=== PATIENT | male | born 1945 | race Caucasian/White ===

== ENCOUNTER 2016-06-24 16:32 | Emergency (ER) | payer OTHER, MEDICARE ==
[2016-06-24 16:27] LABS: BASOPHILS 0.3 %; BASOPHILS ABSOLUTE 0.02 10/3/uL (0.0-0.16); EOSINOPHILS 0.8 %; EOSINOPHILS ABSOLUTE 0.06 10/3/uL (0.0-0.53); ER CBC TAT 0 Hrs 07 Mins; HEMATOCRIT 34.1 % (40.0-51.0); HEMOGLOBIN 11.3 g/dL (13.6-17.8); IMMATURE GRANULOCYTES 0.1 %; IMMATURE GRANULOCYTES ABSOLUTE 0.01 10/3/uL (0.0-0.11); LYMPHOCYTES 18.3 %; LYMPHOCYTES ABSOLUTE 1.42 10/3/uL (0.67-4.30); MANUAL DIFF NO %; MEAN CORPUS HGB CONC 33.1 g/dL (32.0-36.0); MEAN CORPUSCULAR HEMOGLOB 27.2 pg (26.0-34.0); MEAN PLATELET VOLUME 9.4 fL (9.2-13.0); MONOCYTES 5.8 %; MONOCYTES ABSOLUTE 0.45 10/3/uL (0.21-1.20); NEUTROPHILS 74.7 %; NEUTROPHILS ABSOLUTE 5.82 10/3/uL (2.02-8.40); PLATELET COUNT 225 10/3/uL (150-400); RBC DISTRIBUTION WIDTH 15.8 % (12.0-16.0); RED CELL COUNT 4.16 10/6/uL (4.7-6.1); WHITE BLOOD CELLS 7.8 10/3/uL (4.5-10.5)
[~2016-06-24 16:32] MED LIST: APRES10B PO; ASAB PO; BEN25 PO; CENTRUM PO; CENTRUM TAB1 TAB PO; COREG6 PO; CYANO1000T PO; DAYQUIL PO; DULERA 200 MCG/13 GM INH; HALF81 PO; HEMOCYTE324 MG PO; IRON325 MG PO; ISORDIL10 PO; KAOPECTAT2 PO; KAOPECTATE PO; LEVAQUIN750 MG PO; LIPITOR40 PO; LOP25 PO; METAMUCIL CAPSULE PO; MUCINEX600 MG PO; MULTIVIT/MIN PO; NICODERM C21 MG/241; NICODERM C21 MG/241 TOP; NICODERM C7 MG/24 HR TOP; NORV5 PO; NYQUIL PO; OMNICEF300 PO; P20 OR; PAX10 PO; PRED50B PO; PROTONIX PO; PROVHFA INH; SPIRIVA INH; SYMBICORT 160/41 INH INH; VANTIN200 MG PO; VENTOLIN HFA INH; VITAMIN B-121000 MC1 SL; ZITH250; ZITH250 PO
[2016-06-24 16:46] LABS: A/G RATIO 0.8 (0.7-1.9); ALBUMIN 3.2 G/DL (3.5-5.0); CALCIUM, SERUM 8.6 MG/DL (8.5-10.4); CHLORIDE, SERUM 110 MMOL/L (96-112); CO2 (CARBON DIOXIDE) 25 MMOL/L (24-34); CREATININE 1.77 MG/DL (0.70-1.30); GFR AFRICAN AMERICAN 44 ML/MIN (>=60); GFR NON AFRICAN AMERICAN 38 ML/MIN (>=60); GLOBULIN 4.2 G/DL (2.5-4.1); GLUCOSE, SERUM 97 MG/DL (60-99); POTASSIUM, SERUM 4.1 MMOL/L (3.5-5.3); SGOT(AST) 16 U/L (5-40); SGPT(ALT) 20 U/L (5-65); SODIUM, SERUM 142 MMOL/L (135-148); TOTAL PROTEIN 7.4 G/DL (6.0-8.5)
[2016-06-24 16:47] LABS: ALKALINE PHOSPHATASE 127 U/L (45-117); BUN (BLOOD UREA NITROGEN) 23 MG/DL (6-23)
[2016-06-24 17:18] LABS: ASCORBIC ACID (UR NOT ORDER) NEG (NEG); BILIRUBIN, URINE NEGATIVE (NEG); ER URINALYSIS TAT 0 Hrs 09 Mins; KETONE, URINE NEGATIVE (NEG); LEUKOCYTE ESTERASE(NOT OR NEG (NEG); NITRITE (URINE) NEG (NEG); WBC (NOT ORDERED) (RFLEX) < 1 (0-5)
[2016-11-10] MEDS ORDERED: B12100T PO (02:29)
[2016-11-10] MEDS ORDERED: SUCR PO (02:30)
[2016-11-10] MEDS ORDERED: LIPITOR80 MG PO (02:30)
[2016-11-11] MEDS ORDERED: NORV5 PO (14:07)
[2016-11-11] MEDS ORDERED: PROTONIX PO (14:07)
[2016-11-12] MEDS ORDERED: PLAVIX PO (16:56)
[2016-11-13] MEDS ORDERED: ASAB PO (12:35)
== END 2016-06-24 19:10 | disposition home or self-care (01) ==
LOC: ER 16:32
PROVIDERS: Emergency Medicine
DX: I10 Essential (primary) hypertension (principal); F17.200 Nicotine dependence, unspecified, uncomplicated; N18.9 Chronic kidney disease, unspecified; Z91.14 Patient's other noncompliance with medication regimen; I12.9 Hypertensive chronic kidney disease with stage 1 through stage 4 chronic kidney disease, or unspecified chronic kidney disease; J44.9 Chronic obstructive pulmonary disease, unspecified; I25.10 Atherosclerotic heart disease of native coronary artery without angina pectoris; D64.9 Anemia, unspecified; Z86.73 Personal history of transient ischemic attack (TIA), and cerebral infarction without residual deficits; Z95.5 Presence of coronary angioplasty implant and graft; Z79.82 Long term (current) use of aspirin; Z79.899 Other long term (current) drug therapy
CPT/HCPCS: 70450; 80053; 81001; 85025; 96374; 99284; A9270-GY; J1170; J2405

== ENCOUNTER 2016-06-25 19:55 | Emergency (ER) | payer OTHER, MEDICARE ==
[2016-06-25 16:34] LABS: BASOPHILS 0.3 %; BASOPHILS ABSOLUTE 0.02 10/3/uL (0.0-0.16); EOSINOPHILS 1.1 %; EOSINOPHILS ABSOLUTE 0.07 10/3/uL (0.0-0.53); ER CBC TAT 0 Hrs 07 Mins; HEMATOCRIT 32.7 % (40.0-51.0); HEMOGLOBIN 10.7 g/dL (13.6-17.8); LYMPHOCYTES 25.1 %; LYMPHOCYTES ABSOLUTE 1.56 10/3/uL (0.67-4.30); MEAN CORPUS HGB CONC 32.7 g/dL (32.0-36.0); MEAN CORPUSCULAR HEMOGLOB 27.4 pg (26.0-34.0); MEAN CORPUSCULAR VOLUME 83.6 fL (80-100); MEAN PLATELET VOLUME 9.2 fL (9.2-13.0); MONOCYTES 10.8 %; MONOCYTES ABSOLUTE 0.67 10/3/uL (0.21-1.20); NEUTROPHILS 62.7 %; PLATELET COUNT 220 10/3/uL (150-400); RED CELL COUNT 3.91 10/6/uL (4.7-6.1); WHITE BLOOD CELLS 6.2 10/3/uL (4.5-10.5)
[2016-06-25 16:36] LABS: MANUAL DIFF NO %
[2016-06-25 16:53] LABS: A/G RATIO 0.8 (0.7-1.9); ALKALINE PHOSPHATASE 122 U/L (45-117); BUN (BLOOD UREA NITROGEN) 25 MG/DL (6-23); CALCIUM, SERUM 8.5 MG/DL (8.5-10.4); CHLORIDE, SERUM 110 MMOL/L (96-112); CO2 (CARBON DIOXIDE) 23 MMOL/L (24-34); CREATININE 2.13 MG/DL (0.70-1.30); GFR AFRICAN AMERICAN 36 ML/MIN (>=60); GFR NON AFRICAN AMERICAN 31 ML/MIN (>=60); GLUCOSE, SERUM 94 MG/DL (60-99); POTASSIUM, SERUM 3.9 MMOL/L (3.5-5.3); SGOT(AST) 14 U/L (5-40); SGPT(ALT) 17 U/L (5-65); SODIUM, SERUM 143 MMOL/L (135-148); TOTAL BILIRUBIN 0.7 MG/DL (0-1.2); TROPONIN I <0.02 NG/ML (<0.05)
[2016-11-10] MEDS ORDERED: B12100T PO (02:29)
[2016-11-10] MEDS ORDERED: LIPITOR80 MG PO (02:30)
[2016-11-10] MEDS ORDERED: SUCR PO (02:30)
[2016-11-11] MEDS ORDERED: PROTONIX PO (14:07)
[2016-11-11] MEDS ORDERED: NORV5 PO (14:07)
[2016-11-12] MEDS ORDERED: PLAVIX PO (16:56)
[2016-11-13] MEDS ORDERED: ASAB PO (12:35)
== END 2016-06-25 20:52 | disposition left against medical advice (07) ==
LOC: ER 19:55
PROVIDERS: Emergency Medicine
DX: R41.82 Altered mental status, unspecified (principal); Z53.21 Procedure and treatment not carried out due to patient leaving prior to being seen by health care provider; Z79.82 Long term (current) use of aspirin; Z79.899 Other long term (current) drug therapy
CPT/HCPCS: 71020; 80053; 81001; 82962; 84484; 85025; 87040; 93005

== ENCOUNTER 2016-06-29 21:40 | Inpatient (IN) | payer MEDICARE ==
--- NOTE | ~2016-06-29 | HP ---
History And Physical [id number] [place]. [address] NAME: LEVY WATERMAN : 49 STATUS : ADM IN [facility]#: [id number] AGE: 71 ADM/REG DATE : 06/30/16 MR#: [id number] REPORT SERV DATE: 06/30/16 DICTATED BY: ROBERTA CHEUNG DATE: 06/30/16 REPORT STATUS : Draft TRANSCRIBED BY: JAIRO DATE: 06/30/16 DATE OF ADMISSION: 06/29/2016 CHIEF COMPLAINT: Mental status changes and memory loss. HISTORY OF PRESENT ILLNESS: This is a 71-year-old male with a past medical history of CVA, end-stage III CKD, and hypertension, who presents after having four ER visits for intermittent confusion over the past seven days, this is the fifth for the patient. According to a friend who is at bedside, the patient has had intermittent confusion over the several days and however, earlier today around 0630 in the evening, the patient was supposed to drive to his friend's home. The patient took too long to arrive. Therefore, the friend called the patient, and the patient stated that he did not know where he was. The patient was later found at [facility] in [place], and the patient and friend went to go eat, although the patient was walking slow, still had some mild confusion, but did not want to come to the emergency department at the time until he ate some food. Also the patient later did not know how to get back home to his own house. Therefore, the patient was brought to the emergency department. He had no chest pain. No shortness of breath. The patient states he has had some gait imbalance for the past two months, and walks slowly to watch his steps. He denies any new medications and also denies any stopped medications. He denies any neuro focal deficits. He denies any subjective fever or chills. No abdominal pain. No nausea or vomiting. No diarrhea. No constipation. REVIEW OF SYSTEMS: Please refer to HPI. PAST MEDICAL HISTORY: Hemoptysis, CVA, CKD stage III, hypertension, GI bleed, COPD, iron deficiency anemia, hyperlipidemia, AAA repair, coronary artery disease, monoclonal gammopathy. PAST SURGICAL HISTORY: Bronchoscopy, AAA repair, hernia repair. FAMILY HISTORY: CVA. SOCIAL HISTORY: One-half pack per day for approximately 45 years. No alcohol, he used to be a heavy drinker, but quit about 30 years ago. No illicit drugs. ALLERGIES: NO KNOWN ALLERGIES. HOME MEDICATIONS: Please refer to SHAYAN per pharmacist, states that this medication list is not quite complete because the patient also gives medications [place] only from the [place] but from [facility] and the pharmacist to readdress in the morning. However, currently takes albuterol p.r.n., Norvasc 5 mg p.o. daily, aspirin 81 mg p.o. at bedtime, Symbicort two puffs inhaled b.i.d., vitamin B12 500 mcg p.o. daily, ferrous sulfate 325 mg p.o. daily, lisinopril 10 mg p.o. q.12 hours, metoprolol tartrate 12.5 mg p.o. q.12 hours, and multivitamin with minerals p.o. daily. History And Physical [address] [address] NAME: LEVY WATERMAN : 49 STATUS : ADM IN [facility]#: [id number] AGE: 71 ADM/REG DATE : 06/30/16 MR#: [id number] REPORT SERV DATE: 06/30/16 DICTATED BY: ROBERTA CHEUNG DATE: 06/30/16 REPORT STATUS : Draft TRANSCRIBED BY: JAIRO DATE: 06/30/16 IMAGING: CT of the brain without contrast showing no acute intracranial pathology, has stable moderate diffuse cerebral involutional change and advanced deep white matter chronic microvascular ischemic change. Stable old lacunar infarct in the right basal ganglia extending into the joyner radiata. A stable small 2-mm old lacunar infarct in the left thalamus. Chest x-ray, no acute infiltrates. Please refer to the final report per Radiology. LABORATORY DATA: Sodium 141, potassium 4.1 with a chloride of 107, bicarb of 25, BUN of 29, creatinine is 2.04 with a glucose of 103. Albumin of 2.9. T bilirubin of 0.3. Alkaline phosphatase of 104. ALT of 14, AST of 15. Troponin less than 0.02. Tylenol level less than 2. Salicylate level 2.7. Alcohol level less than 10. Ammonia 14. White count of 6.5 with a hemoglobin of 10 and platelet count 227. UA not performed. EKG with sinus bradycardia ventricular rate of 55%. No ST elevation. PHYSICAL EXAMINATION: VITAL SIGNS: Temp of 98.5, blood pressure 116/65 with a pulse of 67, respiration of 20, saturating 96% on room air. GENERAL: The patient currently is alert and oriented x3, currently in no distress. Speaks slowly, but answers all questions and follows commands. HEENT: Pupils equal, round, and reactive to light. Extraocular muscles are intact with anicteric sclera. Dry mucous membranes. CARDIOVASCULAR: S1, S2. Currently regular rate and rhythm. No murmurs, rubs, or gallops. No JVD. RESPIRATORY: Clear to auscultation bilaterally. No wheezes or crackles. No signs of tachypnea. ABDOMEN: Positive bowel sounds. Soft, nontender. No rebound. No fluid wave. No distention. EXTREMITIES: 2+ pulse bilaterally. No edema. NEURO: Cranial nerves 2 through 12 grossly intact. Moves all four extremities. 4/5 upper and lower extremity strength bilaterally. ASSESSMENT AND PLAN: 1. Transient ischemic attack. 2. Encephalopathy. 3. Hypertension. 4. Chronic kidney disease. 5. Tobacco abuse. The patient may be experiencing recurrent transient ischemic attack. He has had two CTs in the past seven days. We will consult Neurology and check a fasting lipid panel. Also, carotid ultrasound and echocardiogram for CVA workup/TIA work up. Also, would check an UDS and urine analysis. The patient will be admitted to my colleague who will attend to this patient's care. History And Physical [address] [address] NAME: LEVY WATERMAN : 49 STATUS : ADM IN [facility]#: [id number] AGE: 71 ADM/REG DATE : 06/30/16 MR#: [id number] REPORT SERV DATE: 06/30/16 DICTATED BY: ROBERTA CHEUNG DATE: 06/30/16 REPORT STATUS : Draft TRANSCRIBED BY: JAIRO DATE: 06/30/16 [facility]/JAIRO Roberta Cheung M.D. / [id number]
--- NOTE | ~2016-06-29 | DS ---
Discharge Summary [facility] [address] [place]. [address] NAME: LEVY WATERMAN : 49 STATUS : ADM IN [facility]#: [id number] AGE: 71 ADM/REG DATE : 06/30/16 MR#: [id number] REPORT SERV DATE: 07/07/16 DICTATED BY: EULA COYNE DATE: 07/05/16 REPORT STATUS : Draft TRANSCRIBED BY: MODL DATE: 07/05/16 ADMISSION DATE: 06/30/2016 DISCHARGE DATE: 07/05/2016 CONSULTANTS: Dr. Isabel Vieira, Neurology. DISCHARGE DIAGNOSES: 1. Acute left occipital ischemic stroke. 2. Old ischemic strokes, medial, posterior, left frontal, cerebellar hemispheres, and right periventricular. 3. Hypertension. 4. Stage 3 to 4 chronic kidney disease. 5. Chronic obstructive pulmonary disease with pulmonary fibrosis. 6. Bradycardia when on beta-blockers. 7. History of anemia of chronic disease along with iron deficiency anemia and previous monoclonal gammopathy, unknown significance. 8. Previous abdominal aortic aneurysm repair, peripheral arterial disease. 9. History of previous coronary stent placement. 10.Previous hemoptysis with bronchitis, 2014. 11.History of gastroesophageal reflux and esophagitis with previous gastrointestinal bleed. 12.Borderline low B12. 13.Possible small patent foramen ovale. 14.Metabolic encephalopathy, now improved. 15.Brainstem with midbrain atrophy suggesting possible early Parkinson's disease. HISTORY: The patient was brought to the emergency room because he reportedly was disoriented and confused for several days prior to being brought to the emergency room. He was supposed to go to a friend's house, did not show up. He was later found at [facility] reportedly in [place]. The patient did not know where he was. He has had some progressive gait imbalance over the last few months with slow walking. Because of these abnormalities, referred to our team for inpatient care. Review of the chart shows that on 06/24/2016, he was evaluated in the emergency room because of headache. He had a CT without contrast showing old changes. No acute abnormalities. Currently, when he was in the emergency room, his CT showed no acute abnormalities, just moderate atrophy, advanced deep white matter changes, and old infarcts. The MRI of the brain completed on 06/30/2016 revealed acute infarction, left occipital region, and evidence of old strokes. Carotid ultrasound revealed no significant carotid stenosis, no significant vertebral abnormalities. Echocardiogram, 06/30/2016, left atrium is 3.5 cm, left ventricular ejection fraction 50% to 55%, aortic valve sclerosis without stenosis, possible small patent foramen ovale. The patient improved, his confusion cleared, he was assessed by Neurology. They agreed with aspirin, high-dose statin, and Plavix; discontinuation of tobacco. He was evaluated by the rehab team and felt to need inpatient rehab. Those arrangements have been now made. DISCHARGE MEDICATIONS: Norvasc 10 mg daily, aspirin 81 mg daily, Lipitor 80 mg daily, Plavix Discharge Summary [id number] [place]. [address] NAME: LEVY WATERMAN : 49 STATUS : ADM IN [facility]#: [id number] AGE: 71 ADM/REG DATE : 06/30/16 MR#: [id number] REPORT SERV DATE: 07/07/16 DICTATED BY: EULA COYNE DATE: 07/05/16 REPORT STATUS : Draft TRANSCRIBED BY: JAIRO DATE: 07/05/16 75 mg daily, vitamin B12 at 500 mcg daily plus 1000 mcg IM every month as his B12 level here was 233 which is at the low end of normal, ferrous sulfate 325 mg daily, nicotine patch 14 mg size, thiamine 100 mg daily, Dulera 200/5 two puffs twice a day, Tylenol 650 q.6 hours p.r.n. pain, calcium carbonate (Tums) 500 mg p.r.n. indigestion, albuterol HFA 2 puffs q.4 hours p.r.n. shortness of breath, Pepcid 20 mg b.i.d., Carafate 1 g a.c. and h.s. We stopped his metoprolol 12.5 mg b.i.d. because his heart rate was running in the 40s and we stopped his lisinopril because his creatinine is running now anywhere from 1.6 to 2.13 and since it is not stable, we do not want to add stress with an KEL inhibitor or an angiotensin receptor jeane. We recommended a weekly CBC and BMP to follow up on this as well. When the patient gets out of the rehab, he should follow up with not only his [facility] Dr. Stepan Copeland, but his tabular typist Dr. Dean, his SIDNEY Gupta, and it would be a good idea for him to follow up longitudinally with Neurology associates given his multiple strokes and/or suspicion that he may have early Parkinson's disease based on his slowness of movement, his gait, and his MRI imaging of the brain. I spent 31 minutes today with the patient and with his daughter and with discharge planning. RSG/MODL Eula Coyne M.D. / [id number] CC: Sarah Crenshaw III, M.D. Alan Shikoh, M.D. [facility]
--- NOTE | ~2016-06-29 | CN ---
Consultation Report [facility] [address] [place]. [address] NAME: LEVY WATERMAN : 49 STATUS : ADM IN PAT#: [id number] AGE: 71 ADM/REG DATE : 06/30/16 MR#: [id number] REPORT SERV DATE: 06/30/16 DICTATED BY: MELISSA SUN DATE: 06/30/16 REPORT STATUS : Draft TRANSCRIBED BY: MODSandee DATE: 06/30/16 NEUROLOGY CONSULTATION DATE OF CONSULTATION: 06/30/2016 REASON FOR CONSULTATION: Acute encephalopathy, possible TIA. PRIMARY CARE PHYSICIANS: ANMOL and Dr. Copeland. HOSPITALIST: Elisa Loza M.D. HISTORY OF PRESENT ILLNESS: The patient is a 71-year-old male, who has had episodes of intermittent confusion. This last episode has been going on for the past five to six days. According to his daughter, he started becoming confused on Thursday. [place] sent him to [facility] for further evaluation, treatment, and hospitalization. He arrived here at [facility]. He was evaluated and sent home. Thursday, the patient developed slurred speech and his friend was concerned that he may have had a stroke, so she called 911 and he was brought to the emergency department. The daughter is unsure of what happened; however, the patient got mad and walked out of the ER. On , the daughter brought her father to the ER because he was complaining of chest pain. She was worried about his heart and he was also confused. He came in, was evaluated, and according to the daughter, was told his symptoms were gastrointestinal in nature. He was sent home with a prescription. Yesterday, the patient drove to the bank and called his daughter wondering why the bank was closed. He did not realize it was Thursday. Later that day, he was supposed to meet a friend at [employer] for dinner, and she called him and he was lost. He told her he was at [employer], but later he was found at [employer]. She found him and he did not know how to find his way home. So, she asked him to follow her home and he could not even follow her car. Consequently, the patient was brought back to the hospital and he was admitted for confusion. PAST MEDICAL HISTORY: Stroke, chronic kidney disease, episodes of acute encephalopathy, hypertension, hemoptysis, GI bleeding, COPD, iron deficiency anemia, coronary artery disease, monoclonal gammopathy, and cigarette abuse. PAST SURGICAL HISTORY: AAA repair, hernia repair, PTCA, appendectomy, and colonoscopy. HOME MEDICATION LIST: Consists of ProAir inhaler, Norvasc 5 mg daily, aspirin 81 mg at bedtime, Symbicort 160/4.5 inhaler two puffs twice a day, vitamin B12 at 250 mcg daily, ferrous sulfate 325 mg daily, Prinivil 10 mg every 12 hours, Lopressor 12.5 mg q.12 h., and a Centrum tablet daily. ALLERGIES: NO ALLERGIES. SOCIAL HISTORY: The patient is . He lives by himself. According to the daughter, Consultation Report [id number] [facility] [place]. [address] NAME: LEVY WATERMAN : 49 STATUS : ADM IN [facility]#: [id number] AGE: 71 ADM/REG DATE : 06/30/16 MR#: [id number] REPORT SERV DATE: 06/30/16 DICTATED BY: MELISSA SUN DATE: 06/30/16 REPORT STATUS : Draft TRANSCRIBED BY: JAIRO DATE: 06/30/16 he is a hoarder. He has one daughter. 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 He is a smoker. He used to be a heavy drinker; does not drink anymore and does not use illicit drugs. FAMILY HISTORY: His mother in her 70s. She was morbidly obese and she in surgery. His father at 84. He had a stroke and had cancer. The patient has three siblings, one brother from an NM, the other from an NM or stroke, and he has one brother who is alive and healthy. REVIEW OF SYSTEMS: See HPI. PHYSICAL EXAMINATION: VITAL SIGNS: The patient is a 71-year-old male, who stands 6 feet 2 inches tall and weighs 185 pounds. He is afebrile. Heart rate 68, respiratory rate 17, O2 saturations on room air 95%, and blood pressure 123/98. GENERAL: The patient is awake. He is somewhat drowsy, but will arouse to verbal stimuli. Pupils are 3 mm. PERRLA. Cranial nerves II through XII are intact. No reported sensory loss. Difficult to do visual ebck via confrontation, but for the most part are intact. Heabfv-sv-wvpr, obuu-ga-fuql without ataxia. There is a slight right parietal drift. Slight asterixis. No tremor. No dysmetria. Upper extremity strength is 4/5 bilaterally. Upper DTRs 1+ bilaterally. No reported sensory deficits. Lower extremity strength again is a 4/5 bilaterally. Patellar reflexes 1+ bilaterally. Downgoing toes. No reported sensory deficits. NECK: No carotid bruits, JVD, or thyromegaly. CHEST: Lung sounds clear with some crackles in the bases. CARDIAC: Regular rate and rhythm. LABORATORY DATA: CBC is normal. BMP: Creatinine is 1.74. Cholesterol values are mildly elevated. A1c 1.5. Urine drug screen positive for opiates. Chest x-ray: COPD. CT of the brain: No acute changes, but old lacunar infarcts in the right basal ganglia and left thalamic region. ASSESSMENT/PLAN: Acute encephalopathy of unknown etiology. Most likely, multifactorial in nature. The patient will undergo an MRI of the brain without gadolinium. We will not include gadolinium because he has chronic kidney disease. The patient will have a carotid duplex study and an echocardiogram with bubble. Recommended labs would include TSH, free T4, folate, B12, vitamin D3, ammonia, liver panel, and serum protein electrophoresis with immunofixation studies. Also recommended would be an EEG to rule out any subclinical seizure activity. In any event, the patient had a TIA. The patient should be placed on aspirin 325 mg and Lipitor 80 mg for protection. Thank you again for including us in consultation. Consultation Report [address] [place]. [address] NAME: LEVY WATERMAN : 49 STATUS : ADM IN PAT#: [id number] AGE: 71 ADM/REG DATE : 06/30/16 MR#: [id number] REPORT SERV DATE: 06/30/16 DICTATED BY: MELISSA SUN DATE: 06/30/16 REPORT STATUS : Draft TRANSCRIBED BY: JAIRO DATE: 06/30/16 [facility]/JAIRO Melissa Sun, [facility] / [id number] CC: Sarah Tripathi M.D.
--- NOTE | ~2016-06-29 | DS ---
Discharge Summary [facility] [address] [place]. [address] NAME: LEYV WATERMAN : 49 STATUS : DIS IN PAT#: [id number] AGE: 71 ADM/REG DATE : 06/30/16 MR#: [id number] REPORT SERV DATE: 07/08/16 DICTATED BY: EULA COYNE DATE: 07/07/16 REPORT STATUS : Draft TRANSCRIBED BY: MODL DATE: 07/07/16 ADMISSION DATE: 06/30/2016 DISCHARGE DATE: 07/07/2016 CONSULTANTS: Dr. Vieira, Neurology DISCHARGE DIAGNOSES: 1. Acute left occipital stroke. 2. Multiple previous strokes (right basal ganglia, left thalamus, and left frontal). 3. Hypertension. 4. Stage 3-4 chronic kidney disease. 5. Chronic obstructive pulmonary disease with pulmonary fibrosis in an active smoker. 6. Anemia of chronic disease and previous iron deficiency and previous monoclonal gammopathy of unknown significance. 7. Bradycardia while on beta blockers. 8. Previous abdominal aortic aneurysm repair. 9. History of coronary artery disease with previous percutaneous coronary intervention. 10.Previous hemoptysis with bronchitis 2014. 11.Previous gastrointestinal bleed with esophagitis. 12.Borderline low B12. 13.Suspected patent foramen ovale. 14.Status post metabolic encephalopathy. HISTORY: The patient was brought to the emergency room at [facility]. Reportedly, he had had intermittent confusion over the previous few days. On the day of admission, the patient was supposed to go to a friend's house but he did not arrive. When they called him, he stated he did know where he was. They later found him at a [employer] in [place]. He was noted to be walking slow. They eventually brought him to the emergency room at [facility], and our team was asked to see and evaluate him in the hospital. Imaging included a CT scan of the brain without contrast 06/29/2016 showing no acute intracranial pathology, old diffuse atrophy and deep white matter changes, old lacunar infarct right basal ganglia and the right joyner radiata, stable old lacunar infarct left thalamus. MRI of the brain on 06/30/2016 showed acute infarction in left occipital region, extensive old deep white matter changes, several areas of micro bleeds in the cerebellar hemispheres from prior ischemic strokes and in the medial aspect of the left frontal lobe. This suggests possibility of underlying amyloid angiopathy. Carotid ultrasound showed no significant carotid artery stenosis, and he had vertebral flow that was forward in both vertebrals. Echocardiogram on 06/30/2016 showed left atrial size 3.5 cm, left ventricular ejection fraction 50% to 55%, mild left atrial enlargement. He has aortic valve sclerosis but no aortic stenosis. He had a few bubbles crossing the atrial septum during Valsalva suggesting the possibility of a small patent foramen ovale. He was seen by Neurology. They recommended secondary stroke prophylaxis, and we also talked with the patient about the importance of discontinuing all tobacco products. Discharge Summary [id number] [place]. [address] NAME: LEVY WATERMAN : 49 STATUS : DIS IN PAT#: [id number] AGE: 71 ADM/REG DATE : 06/30/16 MR#: [id number] REPORT SERV DATE: 07/08/16 DICTATED BY: EULA COYNE DATE: 07/07/16 REPORT STATUS : Draft TRANSCRIBED BY: JAIRO DATE: 07/07/16 He was evaluated for his needs and was felt to need inpatient rehab, and those arrangements have been made. The patient has stage 3-4 chronic kidney disease. His baseline creatinine ranges anywhere from 1.6 to 1.9. At its highest, it was 2.04. His B12 level was 233 which is at the low end of normal. His TSH is normal at 1.09. He has a chronic normocytic anemia. He has COPD with pulmonary fibrosis but was really not symptomatic with this during his time here in the hospital. DISCHARGE MEDICATIONS: Norvasc has been increased from 5 to 10 mg daily, aspirin 81 mg daily, Lipitor 80 mg daily, Plavix 75 mg daily, vitamin B12 500 mcg daily plus a 1000 mg injected IM every 30 days, iron sulfate 325 mg daily, nicotine patch 14 mg size daily, thiamine 100 mg daily, Dulera 200/5 two puffs twice a day scheduled, Tylenol 650 q.6 hours p.r.n. pain or fever, calcium carbonate 500 mg p.r.n. indigestion, Centrum multivitamin once a day, ondansetron ODT 4 mg q.4 hours p.r.n. nausea, albuterol HFA two puffs q.4 hours p.r.n. shortness of breath, Pepcid 20 mg b.i.d., Carafate 1 g a.c. and h.s. We stopped his metoprolol because of his bradycardia that was rather significant even though he was only on 12.5 mg b.i.d. I spent 22 minutes today with the patient and with his daughter and with discharge planning. RSG/MODL Eula Coyne M.D. / [id number] CC: Sarah Crenshaw M.D. [facility] Sarah Gomez III, M.D.
--- NOTE | ~2016-06-29 | EEG ---
Electroencephalogram [facility] [address] [facility] [place]. [address] NAME: LEVY WATERMAN : 49 STATUS : ADM IN PAT#: [id number] AGE: 71 ADM/REG DATE : 06/30/16 MR#: [id number] REPORT SERV DATE: 07/01/16 DICTATED BY: DATE: REPORT STATUS : Draft TRANSCRIBED BY: MODL DATE: 07/01/16 CLINICAL INDICATION: Encephalopathy. DESCRIPTION: This EEG study was obtained during using 10/20 electrode placement system. During the EEG study, symmetric background activity was noted with predominant occipital rhythm of roughly 8 Hz to 9 Hz. Photic stimulation was performed with appropriate driving response. Hyperventilation was not performed secondary to the patient's underlying medical conditions. During the beginning of the EEG study, left frontal electrode artifact was noted in the F7 electrode. That has subsequently resolved during the second half of the EEG study. The patient, during the EEG study obtained, was drowsy as well as stage I and II sleep with appropriate sleep spindles and K-complexes. No focal abnormalities, seizure activity, or seizure discharge was otherwise noted during the EEG study. INTERPRETATION: This EEG study obtained during awake, drowsy, as well as stage I and II sleep may be considered within normal limits. No focal abnormalities, seizure activity, or seizure discharge was otherwise noted. Clinical correlation is recommended. [facility]/JAIRO Miguel Vieira MD / [id number] CC: Tres Coyne M.D. NO PCP
[2016-06-29 22:25] LABS: BASOPHILS 0.5 %; BASOPHILS ABSOLUTE 0.03 10/3/uL (0.0-0.16); EOSINOPHILS 1.8 %; EOSINOPHILS ABSOLUTE 0.12 10/3/uL (0.0-0.53); HEMATOCRIT 30.3 % (40.0-51.0); IMMATURE GRANULOCYTES 0.2 %; IMMATURE GRANULOCYTES ABSOLUTE 0.01 10/3/uL (0.0-0.11); LYMPHOCYTES 24.3 %; LYMPHOCYTES ABSOLUTE 1.59 10/3/uL (0.67-4.30); MEAN CORPUSCULAR HEMOGLOB 27.5 pg (26.0-34.0); MEAN CORPUSCULAR VOLUME 83.2 fL (80-100); MEAN PLATELET VOLUME 8.8 fL (9.2-13.0); MONOCYTES 11.8 %; MONOCYTES ABSOLUTE 0.77 10/3/uL (0.21-1.20); NEUTROPHILS 61.4 %; NEUTROPHILS ABSOLUTE 4.02 10/3/uL (2.02-8.40); PLATELET COUNT 227 10/3/uL (150-400); RBC DISTRIBUTION WIDTH 15.8 % (12.0-16.0); RED CELL COUNT 3.64 10/6/uL (4.7-6.1); WHITE BLOOD CELLS 6.5 10/3/uL (4.5-10.5)
[2016-06-29 22:26] LABS: MANUAL DIFF NO %
[2016-06-29 22:43] LABS: A/G RATIO 0.7 (0.7-1.9); ACETAMINOPHEN LEVEL (TYLENOL) < 2.0 MCG/ML (10.0-20.0); ALBUMIN 2.9 G/DL (3.5-5.0); ALCOHOL < 10 MG/DL (0); ALKALINE PHOSPHATASE 104 U/L (45-117); BUN (BLOOD UREA NITROGEN) 29 MG/DL (6-23); CALCIUM, SERUM 7.9 MG/DL (8.5-10.4); CHLORIDE, SERUM 107 MMOL/L (96-112); CO2 (CARBON DIOXIDE) 25 MMOL/L (24-34); CREATININE 2.04 MG/DL (0.70-1.30); GFR AFRICAN AMERICAN 37 ML/MIN (>=60); GFR NON AFRICAN AMERICAN 32 ML/MIN (>=60); GLOBULIN 4.1 G/DL (2.5-4.1); GLUCOSE, SERUM 103 MG/DL (60-99); POTASSIUM, SERUM 4.1 MMOL/L (3.5-5.3); SALICYLATE 2.7 MG/DL (-); SGOT(AST) 15 U/L (5-40); SGPT(ALT) 14 U/L (5-65); SODIUM, SERUM 141 MMOL/L (135-148); TOTAL BILIRUBIN 0.3 MG/DL (0-1.2); TROPONIN I <0.02 NG/ML (<0.05)
[2016-06-29] MEDS ORDERED: HALF81 PO (23:56)
[2016-06-29] MEDS ORDERED: PRIN10 PO (23:57)
[2016-06-29] MEDS ORDERED: PROAIR HFA INH (23:57)
[2016-06-29] MEDS ORDERED: NORV5 PO (23:57)
[2016-06-29] MEDS ORDERED: SYMBICORT 160/41 INH INH (23:57)
[2016-06-29] MEDS ORDERED: LOP25 PO (23:57)
[2016-06-30] MEDS ORDERED: CENTRUM PO (00:02)
[2016-06-30] MEDS ORDERED: B12250T PO (00:02)
[2016-06-30] MEDS ORDERED: FERROUS SULF325 M1 PO (00:02)
[2016-06-30] MEDS ORDERED: *UNABLE1 (00:03)
[2016-06-30 00:23] LABS: ASCORBIC ACID (UR NOT ORDER) NEG (NEG); BILIRUBIN, URINE NEGATIVE (NEG); ER URINALYSIS TAT 0 Hrs 00 Mins; KETONE, URINE NEGATIVE (NEG); LEUKOCYTE ESTERASE(NOT OR NEG (NEG); NITRITE (URINE) NEG (NEG); WBC (NOT ORDERED) (RFLEX) 1 (0-5)
[2016-06-30 00:35] LABS: AMPHETAMINES (NOT ORD) NEG (NEG); BARBITURATES (NOT ORDERED NEG (NEG); BENZODIAZEPINES (NOT ORD) NEG (NEG); CANNABINOIDS (THC) NEG (NEG); COCAINE (NOT ORDERED) NEG (NEG); OPIATES POS (NEG); PHENCYCLIDINE(PCP) NEG (NEG); TRICYCLICS NEG (NEG)
[2016-06-30 06:26] LABS: BASOPHILS 0.3 %; BASOPHILS ABSOLUTE 0.02 10/3/uL (0.0-0.16); EOSINOPHILS 1.5 %; EOSINOPHILS ABSOLUTE 0.11 10/3/uL (0.0-0.53); HEMATOCRIT 29.8 % (40.0-51.0); IMMATURE GRANULOCYTES 0.1 %; IMMATURE GRANULOCYTES ABSOLUTE 0.01 10/3/uL (0.0-0.11); LYMPHOCYTES 22.3 %; LYMPHOCYTES ABSOLUTE 1.61 10/3/uL (0.67-4.30); MEAN CORPUS HGB CONC 33.6 g/dL (32.0-36.0); MEAN CORPUSCULAR HEMOGLOB 27.3 pg (26.0-34.0); MEAN CORPUSCULAR VOLUME 81.4 fL (80-100); MEAN PLATELET VOLUME 9.2 fL (9.2-13.0); MONOCYTES ABSOLUTE 0.87 10/3/uL (0.21-1.20); NEUTROPHILS 63.8 %; NEUTROPHILS ABSOLUTE 4.61 10/3/uL (2.02-8.40); PLATELET COUNT 251 10/3/uL (150-400); RED CELL COUNT 3.66 10/6/uL (4.7-6.1); WHITE BLOOD CELLS 7.2 10/3/uL (4.5-10.5)
[2016-06-30 06:37] LABS: MANUAL DIFF NO %
[2016-06-30 06:44] LABS: A/G RATIO 0.7 (0.7-1.9); ALBUMIN 2.6 G/DL (3.5-5.0); ALKALINE PHOSPHATASE 106 U/L (45-117); BUN (BLOOD UREA NITROGEN) 27 MG/DL (6-23); CALCIUM, SERUM 8.2 MG/DL (8.5-10.4); CHLORIDE, SERUM 109 MMOL/L (96-112); CO2 (CARBON DIOXIDE) 22 MMOL/L (24-34); CREATININE 1.74 MG/DL (0.70-1.30); FERRITIN 48 NG/ML (26-388); GFR AFRICAN AMERICAN 45 ML/MIN (>=60); GFR NON AFRICAN AMERICAN 39 ML/MIN (>=60); GLUCOSE, SERUM 94 MG/DL (60-99); POTASSIUM, SERUM 3.9 MMOL/L (3.5-5.3); SGPT(ALT) 15 U/L (5-65); SODIUM, SERUM 142 MMOL/L (135-148); TOTAL BILIRUBIN 0.6 MG/DL (0-1.2); TOTAL PROTEIN 6.6 G/DL (6.0-8.5)
[2016-06-30 06:46] LABS: SGOT(AST) 21 U/L (5-40)
[2016-06-30 06:47] LABS: CHOL/HDL RATIO(NOT ORDER) 4.5 (0-5)
[2016-06-30] MEDS ORDERED: SUCR PO (09:33)
[2016-06-30] MEDS ORDERED: PEP20 PO (09:33)
[2016-06-30 11:10] LABS: CPK 38 U/L (0-200); TROPONIN I <0.02 NG/ML (<0.05)
[2016-06-30 11:11] LABS: CK-MB < 0.5 NG/ML
[2016-06-30 11:38] LABS: T PROTEIN (ELECT)(NOT OR 6.3 G/DL (6.0-8.5)
[2016-06-30 12:16] LABS: ALBUMIN 2.6 G/DL (3.5-5.0); DIRECT BILIRUBIN 0.1 MG/DL (0.0-0.4); FREE T4 1.19 NG/DL (0.76-1.46); INDIRECT BILIRUBIN(NOT ORDER) 0.6 MG/DL (0.1-0.9); TOTAL BILIRUBIN 0.7 MG/DL (0-1.2); TOTAL PROTEIN 6.5 G/DL (6.0-8.5); ULTRASENSITIVE TSH 1.09 MCIU/ML (0.358-3.740)
[2016-06-30 12:17] LABS: FOLATE 27.2 NG/ML (>5.2)
[2016-06-30 17:36] LABS: CK-MB 1.1 NG/ML; CPK 48 U/L (0-200); TROPONIN I <0.02 NG/ML (<0.05)
[2016-06-30 22:04] LABS: CK-MB 0.7 NG/ML; CPK 49 U/L (0-200); TROPONIN I <0.02 NG/ML (<0.05)
[2016-07-01 05:26] LABS: BASOPHILS 0.3 %; BASOPHILS ABSOLUTE 0.02 10/3/uL (0.0-0.16); EOSINOPHILS 1.2 %; EOSINOPHILS ABSOLUTE 0.08 10/3/uL (0.0-0.53); HEMOGLOBIN 10.1 g/dL (13.6-17.8); IMMATURE GRANULOCYTES 0.2 %; IMMATURE GRANULOCYTES ABSOLUTE 0.01 10/3/uL (0.0-0.11); LYMPHOCYTES 20.9 %; LYMPHOCYTES ABSOLUTE 1.34 10/3/uL (0.67-4.30); MEAN CORPUS HGB CONC 33.7 g/dL (32.0-36.0); MEAN CORPUSCULAR HEMOGLOB 27.7 pg (26.0-34.0); MEAN CORPUSCULAR VOLUME 82.4 fL (80-100); MEAN PLATELET VOLUME 9.1 fL (9.2-13.0); MONOCYTES 15.3 %; MONOCYTES ABSOLUTE 0.98 10/3/uL (0.21-1.20); NEUTROPHILS 62.1 %; NEUTROPHILS ABSOLUTE 3.98 10/3/uL (2.02-8.40); PLATELET COUNT 245 10/3/uL (150-400); RBC DISTRIBUTION WIDTH 15.5 % (12.0-16.0); RED CELL COUNT 3.64 10/6/uL (4.7-6.1); WHITE BLOOD CELLS 6.4 10/3/uL (4.5-10.5)
[2016-07-01 05:30] LABS: MANUAL DIFF NO %
[2016-07-01 05:47] LABS: A/G RATIO 0.6 (0.7-1.9); ALBUMIN 2.7 G/DL (3.5-5.0); ALKALINE PHOSPHATASE 110 U/L (45-117); BUN (BLOOD UREA NITROGEN) 24 MG/DL (6-23); CALCIUM, SERUM 8.3 MG/DL (8.5-10.4); CHLORIDE, SERUM 111 MMOL/L (96-112); CHOL/HDL RATIO(NOT ORDER) 3.9 (0-5); CHOLESTEROL 118 MG/DL (< 200); CO2 (CARBON DIOXIDE) 23 MMOL/L (24-34); CREATININE 1.64 MG/DL (0.70-1.30); GFR AFRICAN AMERICAN 49 ML/MIN (>=60); GFR NON AFRICAN AMERICAN 42 ML/MIN (>=60); GLOBULIN 4.2 G/DL (2.5-4.1); GLUCOSE, SERUM 93 MG/DL (60-99); HDL CHOLESTEROL 30 MG/DL (> 39); LDL CHOLESTEROL 71 MG/DL (< 130); NON-HDL CHOLESTEROL 88 MG/DL (< 160); POTASSIUM, SERUM 3.8 MMOL/L (3.5-5.3); SGOT(AST) 19 U/L (5-40); SGPT(ALT) 15 U/L (5-65); SODIUM, SERUM 143 MMOL/L (135-148); TOTAL BILIRUBIN 0.6 MG/DL (0-1.2); TOTAL PROTEIN 6.9 G/DL (6.0-8.5); TRIGLYCERIDE 89 MG/DL (< 150)
[2016-07-01 12:06] LABS: A/G 0.96 RATIO (0.9-2.10); ALBUMIN (ELECTRO) 3.09 GM/DL (3.2-5.5); ALPHA 1 RELAT % (NOT ORD) 4.7 % (1.0-4.0); ALPHA 2 (ELECTRO) 0.87 GM/DL (0.5-1.10); ALPHA 2 RELAT % 13.8 % (4.5-26.0); BETA GLOBULIN (SPE) 0.76 GM/DL (0.60-1.30); GAMMA GLOBULIN (SPE) 1.29 G/DL (0.70-1.60); GAMMA RELAT % 20.5 % (6.0-22.0)
[2016-11-10] MEDS ORDERED: B12100T PO (02:29)
[2016-11-10] MEDS ORDERED: SUCR PO (02:30)
[2016-11-10] MEDS ORDERED: LIPITOR80 MG PO (02:30)
[2016-11-11] MEDS ORDERED: PROTONIX PO (14:07)
[2016-11-11] MEDS ORDERED: NORV5 PO (14:07)
[2016-11-12] MEDS ORDERED: PLAVIX PO (16:56)
[2016-11-13] MEDS ORDERED: ASAB PO (12:35)
== END 2016-07-07 14:44 | DRG 64 ==
LOC: ER 21:40 → ER/OF 06-30 01:31 → 1SO 06-30 06:29
PROVIDERS: Hospitalist; Internal Medicine; Nurse Practitioner
DX: I63.9 Cerebral infarction, unspecified (principal); G93.41 Metabolic encephalopathy; Q21.1 Atrial septal defect; J84.10 Pulmonary fibrosis, unspecified; F03.90 Unspecified dementia, unspecified severity, without behavioral disturbance, psychotic disturbance, mood disturbance, and anxiety; J44.9 Chronic obstructive pulmonary disease, unspecified; R00.1 Bradycardia, unspecified; I12.9 Hypertensive chronic kidney disease with stage 1 through stage 4 chronic kidney disease, or unspecified chronic kidney disease; N18.3 Chronic kidney disease, stage 3 (moderate); K21.9 Gastro-esophageal reflux disease without esophagitis; E78.5 Hyperlipidemia, unspecified; D63.1 Anemia in chronic kidney disease; I25.10 Atherosclerotic heart disease of native coronary artery without angina pectoris; F17.210 Nicotine dependence, cigarettes, uncomplicated; Z79.82 Long term (current) use of aspirin; Z79.899 Other long term (current) drug therapy; Z86.73 Personal history of transient ischemic attack (TIA), and cerebral infarction without residual deficits; Z98.61 Coronary angioplasty status
CPT/HCPCS: 70450; 70551; 71010; 80053; 80061; 80076; 80305; 80307; 81001; 82140; 82550; 82553; 82607; 82728; 82746; 83036; 83735; 84155; 84165; 84439; 84443; 84484; 85025; 93005; 93306; 93880; 94640; 95819; 97110-GO; 97110-GP; 97116-GP; 97162-GP; 97165-GO; 97535-GO; 99285; A9270-GY; J3411